=== PATIENT | female | born 1925 | race Caucasian/White ===

== ENCOUNTER 2016-09-12 10:10 | Emergency (ER) | payer MEDICARE, OTHER ==
--- NOTE | 2016-09-12 10:55 | ER Document Report ---
ED Medical Screen (RME) - General Chief Complaint: Fall Injury Stated Complaint: FALL/BUTT PAIN Time Seen by Provider: 09/12/16 10:52 Notes: 89-year-old female fell 3 weeks ago landing on her buttocks while living in [place]. Initially had pain on both sides but the left side stopped hurting. The right side is continued to hurt. She is been seen twice in [place] in urgent care and primary care and had x-rays done twice but did not show fractures. The pain in the right buttock sacral area has been getting progressively worse to the point that she now requires a walker and is moaning in pain all the time. Brief exam suggests this may be an inter-muscular bursitis the right gluteal area. CT of the pelvic bones to exclude fractures that could not be seen on plain film due to osteoporosis. I have greeted and performed a rapid initial assessment of this patient. A comprehensive ED assessment and evaluation of the patient, analysis of test results and completion of the medical decision making process will be conducted by additional ED providers. TRAVEL OUTSIDE OF THE [place] IN LAST 30 DAYS: No - Related Data Allergies/Adverse Reactions: No Known Allergies Allergy (Verified 09/12/16 10:36) Past Medical History Renal/ Medical History: Denies: Hx Peritoneal Dialysis Physical Exam - Vital signs Vitals: Temp Pulse Resp BP Pulse Ox 98.3 F 71 20 124/57 L 97 09/12/16 10:30 09/12/16 10:30 09/12/16 10:30 09/12/16 10:30 09/12/16 10:30 Course - Vital Signs Vital signs: Temp Pulse Resp BP Pulse Ox 98.3 F 71 20 124/57 L 97 09/12/16 10:30 09/12/16 10:30 09/12/16 10:30 09/12/16 10:30 09/12/16 10:30
--- NOTE | 2016-09-12 11:36 | RADIOLOGY REPORT (SQ) ---
EXAM DESCRIPTION: CT PELVIS WITHOUT COMPLETED DATE/TIME: 09/12/2016 11:15 am REASON FOR STUDY: fall 3 weeks ago, worsening pain R buttock, sacrum COMPARISON: None. TECHNIQUE: CT scan of the pelvis performed without intravenous or oral contrast. Images reviewed wi th soft tissue and bone windows. Reconstructed coronal and sagittal MPR images reviewed. All images stored on PACS. All CT scanners at this facility use dose modulation, iterative reconstruction, and/or weight based d osing when appropriate to reduce radiation dose to as low as reasonably achievable (ALARA). [facility]: Dose Right [facility]: CareDose [facility]: Dose Right [facility]: Teradose 4D [facility]: [employer] RADIATION DOSE: Up-to-date CT equipment and radiation dose reduction techniques were employed. CTDIv ol: 4.8 mGy. DLP: 162 mGy-cm. mGy. LIMITATIONS: None. FINDINGS: PELVIC BONES: Osteopenic. Subtle serpiginous lucency in the right sacrum, coronal images 40-43. No displaced sacral fracture. VISUALIZED SPINE: Nondisplaced fracture right transverse process L5. HIP(S): No acute fracture or dislocation. No worrisome bone lesions. PELVIC SOFT TISSUES: No significant findings. EXTRAPELVIC SOFT TISSUES: No significant findings. OTHER: No other significant finding. IMPRESSION: 1. Fracture right L5 transverse process. 2. Suspect occult right sacral fracture. This could be confirmed with MRI or bone scan. TECHNICAL DOCUMENTATION: JOB ID: [id number] Quality ID # [id number]: Final reports with documentation of one or more dose reduction techniques (e.g., Au tomated exposure control, adjustment of the mA and/or kV according to patient size, use of iterative reconstruction technique) 2010 [employer]- All Rights Reserved
--- NOTE | 2016-09-12 14:51 | ER Document Report ---
ED Fall - General Chief Complaint: Fall Injury Stated Complaint: FALL/BUTT PAIN Time Seen by Provider: 09/12/16 10:52 Information source: Patient, Relative Notes: Patient is an 89-year-old female that had a witnessed fall going down the steps around 3 weeks ago landing onto her buttocks. It was witnessed by her daughter who is currently in the room. Patient denies any headache, palpitations, chest pain, or other causes of the fall. She denies any nausea, vomiting, or fevers. Patient denies any weakness or numbness to her lower back but states that she has a lot of pain especially when going from the seated to standing position. TRAVEL OUTSIDE OF THE [place] IN LAST 30 DAYS: No - HPI Occurred: Other - See above Where: Home Context: Slipped Associated symptoms: None Location of injury/pain: Other - See above Quality of pain: Achy Severity: Moderate Pain Level: 1 - Related data Allergies/Adverse Reactions: No Known Allergies Allergy (Verified 09/12/16 10:36) Home Medications: Current Home Medications Aspirin [Aspirin EC] 81 mg PO DAILY 09/12/16 [History] Metoprolol Succinate [Toprol Xl 50 mg Tab.sr] 50 mg PO DAILY 09/12/16 [History] [place]-3S/Dha/Epa/Fish Oil [Fish Oil 1,200 mg Softgel] 1 each PO DAILY 09/12/16 [ History] Past Medical History - Social History Smoking Status: Never Smoker Cigarette use (# per day): No Chew tobacco use (# tins/day): No Smoking Education Provided: No Frequency of alcohol use: None Drug Abuse: None Family History: Reviewed & Not Pertinent Patient has suicidal ideation: No Patient has homicidal ideation: No - Past Medical History Cardiac Medical History: Reports: Hx Hypertension Renal/ Medical History: Denies: Hx Peritoneal Dialysis Surgical Hx: Negative Review of Systems - Review of Systems Constitutional: denies: Fever Cardiovascular: denies: Chest pain, Palpitations, Heart racing, Orthopnea, Syncope, Dizziness, Lightheaded Respiratory: denies: Cough, Short of breath Gastrointestinal: denies: Abdomen distended, Abdominal pain, Vomiting Genitourinary: denies: Dysuria Musculoskeletal: denies: Leg swelling Skin: Other - no hives. denies: Rash Neurological/Psychological: Other - no slurred speech -: Yes All other systems reviewed and negative Physical Exam - Vital signs Vitals: Temp Pulse Resp BP Pulse Ox 98.3 F 71 20 124/57 L 97 09/12/16 10:30 09/12/16 10:30 09/12/16 10:30 09/12/16 10:30 09/12/16 10:30 Notes: Reviewed vital signs and nursing note as charted by RN. CONSTITUTIONAL: Alert and oriented and responds appropriately to questions. Well -appearing; well-nourished HEAD: Normocephalic; atraumatic EYES: PERRL ENT: Midface is stable NECK: Supple without meningismus; non-tender to palpation along the midline cervical spine CARD: Regular rate and rhythm; no murmurs, no clicks, no rubs, no gallops; symmetric distal pulses RESP: Normal chest excursion without splinting or tachypnea; no tenderness to the anterior or posterior rib regions ABD/GI: Normal bowel sounds; non-distended; soft, non-tender BACK: The back appears normal with some mild tenderness to the right sided paraspinal lumbar region. Patient has no midline tenderness including the lumbar spine, sacrum, or coccyx on my examination EXT: Normal ROM in all joints; non-tender to palpation; no cyanosis, no effusions, no edema SKIN: No acute lesions noted NEURO: Moves all extremities equally; Motor and sensory function intact PSYCH: The patient's mood and manner are appropriate. Grooming and personal hygiene are appropriate. Course - Re-evaluation Re-evalutation: Given the above history and physical examination we performed a CT scan of the pelvis. 09/12/16 14:53 CT scan as recorded. Patient appears to have a possible sacral fracture and a transverse process fracture. I called and spoke to Dr. Navarro the radiologist. He agrees that there is nothing to do acutely except for possible sacral plasty as an outpatient. Patient has no focal neurological deficits. I will provide short course of pain medications as well as anti-constipation instructions strict return precautions. I will provide both orthopedics as well as the interventional radiology phone number. - Vital Signs Vital signs: Temp Pulse Resp BP Pulse Ox 98.3 F 71 18 124/57 L 97 09/12/16 10:30 09/12/16 10:30 09/12/16 14:00 09/12/16 10:30 06/20/17 10:30 Discharge - Discharge Clinical Impression: Sacral fracture, closed Qualifiers: Encounter type: initial encounter Zone of sacrum fracture: unspecified portion of sacrum Qualified Code(s): S32.10XA - Unspecified fracture of sacrum, initial encounter for closed fracture Lumbar transverse process fracture Qualifiers: Encounter type: initial encounter Fracture type: closed Qualified Code(s): S32.008A - Other fracture of unspecified lumbar vertebra, initial encounter for closed fracture Condition: Good Disposition: HOME, SELF-CARE Additional Instructions: Come back immediately for any increased pain, weakness or numbness, incontinence or fevers, or any other acute problems. You can follow-up with the orthopedic surgeon Dr. Denton as we have discussed. You could also possibly follow-up with interventional radiology by calling [phone] for possible sacral plasty. Please make sure that she take a stool softener, possibly Colace, when you take the narcotic medications as directed on the package as well as drink sufficient fluids and fiber to help avoid constipation. Prescriptions: Hydrocodone/Acetaminophen [[place] Var[place] 5-325 Tablet] 1 each PO Q6 PRN #15 tablet PRN Reason: For Pain Referrals: SHARYN KATZ MD [ACTIVE STAFF] - Follow up as needed
[2016-09-12 15:07] VITALS: BP 110/72
== END 2016-09-12 15:06 | disposition home or self-care (01) ==
LOC: ER 10:10
DX: S32.059A Unspecified fracture of fifth lumbar vertebra, initial encounter for closed fracture (principal); S32.10XA Unspecified fracture of sacrum, initial encounter for closed fracture; W10.9XXA Fall (on) (from) unspecified stairs and steps, initial encounter; Y92.009 Unspecified place in unspecified non-institutional (private) residence as the place of occurrence of the external cause; I10 Essential (primary) hypertension
CPT/HCPCS: 72192; 99283